=== PATIENT | male | born 1985 | race Caucasian/White ===

== ENCOUNTER → 2016-12-23 | Outpatient (CLI) | payer OTHER ==
--- NOTE | 2016-12-23 09:01 | MR ---
EXAMINATION TYPE: MR shoulder RT wo con DATE OF EXAM: 12/23/2016 8:02 AM COMPARISON: NONE HISTORY: Right shoulder pain TECHNIQUE: Multiplanar, multisequence imaging of the right shoulder is performed without contrast. FINDINGS: Rotator Cuff: There is thickening of the distal margin and insertion of the supraspinatus tendon. Foc al area of increased signal at the insertion of the anterior fibers measuring 5 mm suggestive of part ial through thickness tear. No retraction. Small amount of increased signal seen near the insertion o f the subscapularis tendon may represent tendinosis. No definite tear. Acromioclavicular Joint: No significant impingement or mass effect upon the rotator cuff. Glenohumeral Joint: No sizable joint effusion. Inferior glenohumeral ligament intact. Labrum: The labrum appears grossly intact given limitation of non-arthrogram study. Biceps Tendon: The long head of biceps is in normal location within bicipital groove. Bone marrow signal: No focal abnormal marrow signal is appreciated. Tiny cystic changes involving the head of the humerus. IMPRESSION: 1. Supraspinatus tendinosis with partial tear insertion anterior fibers measuring 5 mm. No retraction . 2. Subscapularis mild tendinosis.
== END | disposition home or self-care (01) ==
LOC: RADMRIMAIN 07:22
PROVIDERS: ATTEND Family Medicine
DX: M75.111 Incomplete rotator cuff tear or rupture of right shoulder, not specified as traumatic (principal); M67.813 Other specified disorders of tendon, right shoulder

== ENCOUNTER 2017-06-24 15:18 | Emergency (ER) | payer OTHER ==
--- NOTE | 2017-06-24 16:40 | XR ---
EXAMINATION TYPE: XR tibia fibula RT DATE OF EXAM: 06/24/2017 COMPARISON: NONE HISTORY: 32-year-old male with pain, reopened wound from 2 weeks ago. TECHNIQUE: 2 views FINDINGS: There is a deep soft tissue wound along the anterior mid pretibial region. The wound appears to close ly approximate the anterior cortical margin on the lateral view. No periostitis or osteomyelitis. No acute fracture or dislocation seen. IMPRESSION: Focal wound in the mid pretibial region. On the lateral view, this appears to closely approximate the anterior cortical margin. No suspicious underlying bony changes at this time.
--- NOTE | 2017-06-24 17:14 | ED ---
Skin/Abscess/FB HPI - General Chief complaint: Skin/Abscess/Foreign Body Stated complaint: R leg injury Time Seen by Provider: 06/24/17 15:36 Source: patient Mode of arrival: ambulatory Limitations: no limitations - History of Present Illness Initial comments: Patient presents to have reevaluation of a lesion of the right lower extremity. He noted that he struck his leg on an object and it had some swelling. He states that over the course the past day he had pressed on the swelling and some clotted blood draining. Patient has not had fever or chills, palpitations , or any purulent drainage. MD complaint: other Onset/Timin -: week(s) Tetanus Up to Date: yes Location: LLE Consistency: constant Improves with: none Worsens with: none Context: none Treatments Prior to Arrival: bandages, attempted to drain pus at home - Related Data Home Medications Medication Instructions Recorded Confirmed Albuterol Sulfate [Proair Hfa] 2 puff INHALATION RT-Q6H PRN 06/24/17 06/24/17 Atorvastatin [Lipitor] 20 mg PO HS 06/24/17 06/24/17 Fluticasone/Vilanterol [Breo 1 puff INHALATION RT-DAILY 06/24/17 06/24/17 Ellipta 100-25 Mcg Inhaler] Montelukast [Singulair] 10 mg PO HS 06/24/17 06/24/17 Omeprazole 40 mg PO HS 06/24/17 06/24/17 Ramipril 10 mg PO HS 06/24/17 06/24/17 Sulfamethox-Tmp 800-160Mg [Bactrim 1 tab PO DAILY 06/24/17 06/24/17 DS 800-160 mg] Previous Rx's Medication Instructions Recorded Sulfamethox-Tmp 800-160Mg [Bactrim 2 each PO Q12HR #28 tab 06/24/17 Ds] Allergies Allergy/AdvReac Type Severity Reaction Status Date / Time erythromycin base Allergy Anaphylaxis Verified 06/24/17 15:47 cephalexin [From Keflex] AdvReac Nausea & Verified 06/24/17 15:47 Vomiting & Diarrhea Review of Systems ROS Statement: Those systems with pertinent positive or pertinent negative responses have been documented in the HPI. ROS Other: All systems not noted in ROS Statement are negative. Constitutional: Denies: fever, chills Respiratory: Denies: dyspnea Cardiovascular: Denies: palpitations Skin: Reports: as per HPI, lesions. Denies: change in color, pruritus Neurological: Denies: weakness, numbness, paresthesias Hematological/Lymphatic: Denies: easy bleeding Past Medical History Past Medical History: Asthma, Hyperlipidemia, Hypertension, Thyroid Disorder Additional Past Medical History / Comment(s): fatty liver, kidney stones History of Any Multi-Drug Resistant Organisms: None Reported Past Surgical History: No Surgical Hx Reported Past Psychological History: ADD/ADHD Smoking Status: Never smoker Past Alcohol Use History: None Reported Past Drug Use History: None Reported General Exam Limitations: no limitations General appearance: alert, in no apparent distress Cardiovascular Exam: Present: regular rate, normal heart sounds Skin exam: Present: warm, dry, normal color, other (There is an ulceration to the right pretibial area, less than 1 cm in diameter but there is approximately 1 cm depth. There is no purulent drainage. Trace of erythema no warmth. No tenderness) Course Vital Signs 06/24/17 06/24/17 15:20 17:26 Temperature 97.6 F 98.3 F Pulse Rate 77 67 Respiratory 18 17 Rate Blood Pressure 167/90 133/63 O2 Sat by Pulse 98 96 Oximetry Medical Decision Making - Medical Decision Making Patient has a ulceration to the anterior tibial area. No current signs of infection. Will have patient obtain close follow-up to ensure that there is resolution. Discussed appropriate further care and follow-up. Also discussed signs and symptoms of infection including return parameters. Disposition Clinical Impression: Open leg wound Disposition: HOME SELF-CARE Condition: Good Instructions: Wound Infection (ED), Acute Wound Care (ED) Prescriptions: Sulfamethox-Tmp 800-160Mg [Bactrim Ds] 2 each PO Q12HR #28 tab Referrals: Daniel Sykes DO [Primary Care Provider] - 1-2 days [facility] [[facility]] - 1-2 days
[2017-06-24 17:27] VITALS: BP 133/63; PULSE 67; RESP 17; TEMP 98.3
--- NOTE | 2017-06-26 08:22 | CDI ---
Documentation Clarification OP Dear Sincere BRUNER MD Please do addendum to ED report for HPI , Physical exam and MDM. Thank you, Kelly Pinzon Boat Hoist Operator Helper If you have any question, Please contact bike shop manager at [phone] [facility]
== END 2017-06-24 17:30 | disposition home or self-care (01) ==
LOC: EC 15:18
DX: S81.801A Unspecified open wound, right lower leg, initial encounter (principal); J45.909 Unspecified asthma, uncomplicated; E78.5 Hyperlipidemia, unspecified; I10 Essential (primary) hypertension; E07.9 Disorder of thyroid, unspecified; F90.9 Attention-deficit hyperactivity disorder, unspecified type; Z79.51 Long term (current) use of inhaled steroids; Z79.899 Other long term (current) drug therapy; Z88.1 Allergy status to other antibiotic agents; W22.8XXA Striking against or struck by other objects, initial encounter
CPT/HCPCS: 87070; 87205; 99283

== ENCOUNTER → 2017-11-03 | Outpatient (CLI) | payer OTHER | END | disposition home or self-care (01) | LOC: LABWHC1 12:12 | PROVIDERS: ATTEND Internal Medicine Endocrinology, Diabetes & Metabolism | DX: E03.8 Other specified hypothyroidism (principal) | CPT/HCPCS: 36415; 84443 ==

== ENCOUNTER → 2018-11-02 | Outpatient (CLI) | payer OTHER | END | disposition home or self-care (01) | LOC: LABWHC1 11:07 | PROVIDERS: ATTEND Internal Medicine Endocrinology, Diabetes & Metabolism | DX: E03.8 Other specified hypothyroidism (principal) | CPT/HCPCS: 36415; 84443 ==

== ENCOUNTER 2018-11-13 05:38 | Emergency (ER) | payer OTHER ==
[2018-11-13 05:46] VITALS: RESP 18
[2018-11-13] MEDS ORDERED: DIPH,PERTUS(ACELL)TETVAC-LF 0.5 ML VIAL IM ONE (07:52)
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
--- NOTE | 2018-11-13 08:19 | XR ---
EXAMINATION TYPE: XR wrist limited LT DATE OF EXAM: 11/13/2018 COMPARISON: None HISTORY: Laceration anterior wrist TECHNIQUE: 2 view left wrist FINDINGS: No radiopaque foreign bodies are evident. Soft tissue injury is evident over the carpal reg ion anteriorly. No acute osseous abnormality is present. IMPRESSION: 1. No radiopaque foreign bodies
[2018-11-13 09:04] VITALS: BP 132/78; PULSE 86; TEMP 98.1
== END 2018-11-13 09:03 | disposition home or self-care (01) ==
LOC: EC 05:38
DX: S61.512A Laceration without foreign body of left wrist, initial encounter (principal); J45.909 Unspecified asthma, uncomplicated; E78.5 Hyperlipidemia, unspecified; I10 Essential (primary) hypertension; E07.9 Disorder of thyroid, unspecified; Z79.1 Long term (current) use of non-steroidal anti-inflammatories (NSAID); Z79.51 Long term (current) use of inhaled steroids; Z79.890 Hormone replacement therapy; Z79.899 Other long term (current) drug therapy; Z88.1 Allergy status to other antibiotic agents; Z23 Encounter for immunization; W25.XXXA Contact with sharp glass, initial encounter; Y93.89 Activity, other specified; Y92.009 Unspecified place in unspecified non-institutional (private) residence as the place of occurrence of the external cause; Y99.0 Civilian activity done for income or pay
CPT/HCPCS: 12001; 90471; 90715; 99283

== ENCOUNTER → 2019-05-03 | Outpatient (CLI) | payer OTHER | END | disposition home or self-care (01) | LOC: LABWHC1 11:18 | PROVIDERS: ATTEND Internal Medicine Endocrinology, Diabetes & Metabolism | DX: E03.8 Other specified hypothyroidism (principal) | CPT/HCPCS: 36415; 84443 ==

== ENCOUNTER → 2019-10-31 | Outpatient (CLI) | payer OTHER | END | disposition home or self-care (01) | LOC: LABWHC1 16:25 | PROVIDERS: ATTEND Internal Medicine Endocrinology, Diabetes & Metabolism | DX: E03.8 Other specified hypothyroidism (principal) | CPT/HCPCS: 36415; 84443 ==

== ENCOUNTER → 2019-11-03 | Outpatient (CLI) | payer OTHER | END | disposition home or self-care (01) | LOC: LABWHC1 08:58 | PROVIDERS: ATTEND Internal Medicine Endocrinology, Diabetes & Metabolism | DX: R23.2 Flushing (principal) | CPT/HCPCS: 36415; 84403 ==

== ENCOUNTER → 2020-04-16 | Outpatient (CLI) | payer OTHER | END | disposition home or self-care (01) | LOC: LABWHC1 08:15 | PROVIDERS: ATTEND Internal Medicine Endocrinology, Diabetes & Metabolism | DX: E03.8 Other specified hypothyroidism (principal) | CPT/HCPCS: 36415; 84443 ==

== ENCOUNTER → 2020-05-19 | Outpatient (CLI) | payer OTHER ==
[2020-05-19 14:25] LABS: HCT 49.3 % (39.0-53.0); HGB 16.5 gm/dL (13.0-17.5); MCH 29.6 pg (25.0-35.0); MCHC 33.5 g/dL (31.0-37.0); MCV 88.4 fL (80.0-100.0); Mean Platelet Volume 6.7; Platelet Count 279 k/uL (150-450); RBC 5.58 m/uL (4.30-5.90); RDW 11.9 % (11.5-15.5); WBC 8.9 k/uL (3.8-10.6)
[2020-05-19 19:52] LABS: INR 1.03 (0.90-1.11)
[2020-05-19 20:08] LABS: % Iron Saturation 36.27 (15.00-50.00); Albumin 4.4 g/dL (3.80-4.90); Bilirubin, Conjugated 0.5 mg/dL (0.20-0.40); Bilirubin,Unconjugated 0.7 mg/dL; Ferritin 547.1 ng/mL (22.0-322.0); Globulin 2.2 g/dL (1.6-3.3); Total Bilirubin 1.2 mg/dL (0.3-1.2); Total Protein 6.6 g/dL (6.2-8.2)
[2020-05-20 00:14] LABS: Protein, Total 6.6 g/dL (6.2-8.2)
[2020-05-20 00:28] LABS: Hepatitis A Antibody IgM Non-Reactive (Non-Reactive); Hepatitis B Core IgM Non-Reactive (Non-Reactive); Hepatitis B Surface Antigen Non-Reactive (Non-Reactive); Hepatitis C IgG Antibody Non-Reactive (Non-Reactive)
[2020-05-21 10:34] LABS: Albumin 3.95 g/dL (3.80-4.90)
== END | disposition home or self-care (01) ==
LOC: LABWHC1 13:38
PROVIDERS: ATTEND Physician Assistant
DX: R74.8 Abnormal levels of other serum enzymes (principal)
CPT/HCPCS: 36415; 80074; 80076; 82390; 82728; 83516; 83540; 83550; 84165; 85027; 85610; 86038

== ENCOUNTER → 2020-05-27 | Outpatient (CLI) | payer OTHER ==
--- NOTE | 2020-05-27 07:59 | US ---
EXAMINATION TYPE: US liver DATE OF EXAM: 05/27/2020 COMPARISON: CT CLINICAL HISTORY: R74.8 Abn labs liver function. Abnormal liver labs EXAM MEASUREMENTS: Liver Length: 16.3 cm Gallbladder Wall: 0.2 cm CBD: 0.4 cm Right Kidney: 12.6 x 5.4 x 4.8 cm Pancreas: wnl, tail obscured by overlying bowel gas Liver: Difficult to penetrate, probable fatty sparing near GB Gallbladder: wnl Evidence for sonographic Juarez's sign: No CBD: wnl Right Kidney: wnl, lower pole gassed out IMPRESSION: 1. Correlate for fatty infiltration of liver with focal fatty sparing. Hepatocellular disease in the differential diagnosis.
== END | disposition home or self-care (01) ==
LOC: RADUSWWP 06:58
PROVIDERS: ATTEND Internal Medicine Gastroenterology
DX: K76.9 Liver disease, unspecified (principal)
CPT/HCPCS: 76705

== ENCOUNTER → 2020-06-14 | Outpatient (CLI) | payer OTHER ==
--- NOTE | 2020-06-14 16:31 | US ---
EXAMINATION TYPE: US axilla LT DATE OF EXAM: 06/14/2020 COMPARISON: NONE CLINICAL HISTORY: R22.32 SWELLING/MASS AND LUMP. palpable area within lateral axilla, patient unsure how long she has had this. Not painful. Soft tissue scan of axilla produced a 4.7 x 5.1 x 2.2cm, non vascular, slightly compressible lesion, probable lipoma IMPRESSION: 1. Large homogenous structure compatible with alignment. If additional evaluation is warranted, consi erick MRI.
== END | disposition home or self-care (01) ==
LOC: RADUSWWP 15:36
PROVIDERS: ATTEND Family Medicine
DX: R22.32 Localized swelling, mass and lump, left upper limb (principal)

== ENCOUNTER → 2020-08-24 | Outpatient (CLI) | payer OTHER ==
[2020-08-24 08:43] LABS: HCT 50.7 % (39.0-53.0); HGB 17.5 gm/dL (13.0-17.5); MCH 30.5 pg (25.0-35.0); MCHC 34.5 g/dL (31.0-37.0); MCV 88.4 fL (80.0-100.0); Mean Platelet Volume 6.6; Platelet Count 278 k/uL (150-450); RBC 5.73 m/uL (4.30-5.90); WBC 7.5 k/uL (3.8-10.6)
[2020-08-24 15:27] LABS: Albumin 4.5 g/dL (3.80-4.90); Albumin/Globulin Ratio 2.05 (1.60-3.17); Bilirubin, Conjugated 0.3 mg/dL (0.20-0.40); Bilirubin,Unconjugated 0.5 mg/dL; Globulin 2.2 g/dL (1.6-3.3); Total Bilirubin 0.8 mg/dL (0.3-1.2); Total Protein 6.7 g/dL (6.2-8.2)
== END | disposition home or self-care (01) ==
LOC: LABWHC1 07:46
PROVIDERS: ATTEND Physician Assistant
DX: R74.8 Abnormal levels of other serum enzymes (principal)
CPT/HCPCS: 36415; 80076; 85027

== ENCOUNTER → 2021-02-28 | Outpatient (CLI) | payer OTHER ==
[2021-02-28 14:48] LABS: HCT 49.9 % (39.6-50.0); HGB 16.4 g/dL (13.0-17.0); MCH 29.4 pg (27.0-32.0); MCHC 32.9 g/dL (32.0-37.0); MCV 89.4 fL (80.0-97.0); Mean Platelet Volume 9.9 fL (9.5-12.2); Platelet Count 320 X 10*3/uL (140-440); RBC 5.58 X 10*6/uL (4.40-5.60); RDW 11.9 % (11.5-14.5); WBC 10.78 X 10*3/uL (4.50-10.00)
[2021-02-28 16:25] LABS: Albumin 4.6 g/dL (3.80-4.90); Bilirubin, Conjugated 0.3 mg/dL (0.20-0.40); Bilirubin,Unconjugated 0.4 mg/dL; Globulin 2.3 g/dL (1.6-3.3); Total Bilirubin 0.7 mg/dL (0.3-1.2); Total Protein 6.9 g/dL (6.2-8.2)
== END | disposition home or self-care (01) ==
LOC: LABWHC1 08:18
PROVIDERS: ATTEND Physician Assistant
DX: R74.8 Abnormal levels of other serum enzymes (principal)
CPT/HCPCS: 36415; 80076; 85027